=== PATIENT | female | born 2000 | race Caucasian/White ===

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

== ENCOUNTER → 2022-11-16 | Outpatient (CLI) | payer OTHER ==
--- NOTE | 2022-11-16 15:33 | USB ---
Reason for Exam: Clinical finding. Patient History: Currently using Hormonal Contraceptives, starting at age 17. Paternal aunt had breast cancer. Prior Study Comparison: 10/22/2019 Bilateral Diagnostic Ultrasound, [facility]. Findings: The whole breast of the left breast, the area of palpable concern of the left breast, the axilla of the left breast and the retroareolar of the left breast were scanned. There is a lobulated hypoechoic mass at the left 2:00 position corresponding to the palpable site 10 cm from the nipple. This was present previously however appears to have enlarged slightly in the interval and measures 1.6 x 1.5 x 1.0 cm versus 1.4 x 1.2 x 1.4 cm. This is likely reflective of a fibroadenoma. Overall Assessment: Probably benign, BI-RAD 3 Management: Diagnostic Breast Ultrasound of the left breast in 6 months. A clinical breast exam by your physician is recommended on an annual basis and results should be correlated with mammographic findings. This exam should not preclude additional follow-up of suspicious palpable abnormalities. Results were given to the patient verbally at the time of exam. Electronically signed and approved by: Heber Lombardi M.D. Radiologis
== END | disposition home or self-care (01) ==
LOC: RADUSWWP 13:45
PROVIDERS: ATTEND Surgery
DX: N64.4 Mastodynia (principal); Z80.3 Family history of malignant neoplasm of breast

== ENCOUNTER 2022-11-20 06:14 | Day surgery (SDC) | payer OTHER ==
[~2022-11-20 06:14] MED LIST changes: -ACETAMINOPHEN TAB 500 MG TAB PO ONE; +ACETAMINOPHEN TAB 500 MG TAB PO PRN; -DEXAMETHASONE SOD PHOSPHATE 10 MG/ML 1 ML VIAL IV ONE; -HEPARIN SODIUM,PORCINE 5,000 UNIT/ML 1 ML VIAL SQ ONE; +HEPARIN SODIUM,PORCINE/PF 5,000 UNIT/0.5 ML SYRINGE SQ PRN; -HYDROmorphone 0.5 MG/0.5 ML SYRINGE IVP PRN; -LACTATED RINGERS 1,000 ML IV SCH; -LIDOCAINE 1% (10MG/ML) FOR IV START INTRADERMA PRN; -MIDAZOLAM 2 MG/2 ML VIAL IV PRN; -ONDANSETRON 4 MG/2 ML VIAL IVP ONE; +Pre Op ABX Message 1 EACH MISC MISCELLANE ONE; -fentaNYL (PF) 50 MCG/ML 2 ML AMP IV PRN
[2022-11-20] MEDS ORDERED: DEXAMETHASONE SOD PHOSPHATE 4 MG/ML 1 ML VIAL IV ONE (06:42)
[2022-11-20] MEDS ORDERED: ONDANSETRON 4 MG/2 ML VIAL IVP ONE (06:42)
[2022-11-20] MEDS ORDERED: HYDROmorphone 0.5 MG/0.5 ML SYRINGE IVP PRN (06:42)
[2022-11-20] MEDS ORDERED: LACTATED RINGERS 1,000 ML IV SCH (06:42)
[2022-11-20] MEDS ORDERED: LIDOCAINE 1% (10MG/ML) FOR IV START INTRADERMA PRN (06:42)
[2022-11-20] MEDS ORDERED: droPERidol 5 MG/2 ML VIAL IVP ONE (06:42)
[2022-11-20 07:00] VITALS: RESP 16
[2022-11-20] MEDS ORDERED: SCOPOLAMINE 1 MG/72 HR PATCH TRANSDERM ONE (07:15)
[2022-11-20] MEDS ORDERED: MIDAZOLAM 2 MG/2 ML VIAL ONE (08:01)
[2022-11-20] MEDS ORDERED: fentaNYL (PF) 50 MCG/ML 2 ML AMP ONE (08:01)
[2022-11-20] MEDS ORDERED: LIDOCAINE 2% INJ 20 MG/ML (2 ML VIAL) ONE (08:01)
[2022-11-20] MEDS ORDERED: PROPOFOL 10 MG/ML 20 ML VIAL IV ONE (08:01)
[2022-11-20] MEDS ORDERED: SODIUM CHLORIDE 0.9% 100 ML BAG ONE (08:24)
[2022-11-20] MEDS ORDERED: SODIUM CHLORIDE 0.9% 50 ML with ceFAZolin 2,000 MG IV ONE ×2 (08:24)
[2022-11-20] MEDS ORDERED: ceFAZolin 1,000 MG VIAL ONE (08:24)
[2022-11-20] MEDS ORDERED: BUPIVACAINE (PF) 0.25% 30 ML VIAL SQ ONE ×2 (08:29)
--- NOTE | 2022-11-20 08:53 | P.OP ---
Date of Procedure: 11/20/22 Preoperative Diagnosis: Left breast mass Postoperative Diagnosis: Left breast mass Procedure(s) Performed: Excisional biopsy left breast mass Anesthesia: MILLIE Surgeon: Constantino Carlson Estimated Blood Loss (ml): 5 Pathology: other (Left breast mass) Condition: stable Disposition: PACU Description of Procedure: The patient's placed on the operating table in the supine position. She received general anesthesia. Her left breast was prepped and draped usual sterile fashion. The patient had a left breast mass located at approximately 2 o'clock position. Masses palpated. A skin incision was made over the mass. And using blunt and sharp dissection with cautery the mass was excised. The mass appeared to have a glistening white appearance of a fibroadenoma. The Bovie hemostasis. The skin was closed interrupted 3-0 Monocryl suture. Dermabond dressings was applied. Patient top she will well she was sent to recovery room in stable condition.
[2022-11-20 09:02] VITALS: TEMP 97
[2022-11-20 10:07] VITALS: BP 125/83; PULSE 54
== END 2022-11-20 10:15 | disposition home or self-care (01) ==
LOC: OR 06:14
PROVIDERS: ATTEND Surgery
DX: D24.2 Benign neoplasm of left breast (principal); J45.909 Unspecified asthma, uncomplicated; F17.290 Nicotine dependence, other tobacco product, uncomplicated; F10.90 Alcohol use, unspecified, uncomplicated; Z98.51 Tubal ligation status
CPT/HCPCS: 81025; 88305; 19120; J2250; J1100; J2405; J0690; J3010; J2704; J1644; J2001

== ENCOUNTER 2023-03-07 00:36 | Emergency (ER) | payer OTHER ==
[2023-03-07 00:52] VITALS: BP 128/83; PULSE 75; RESP 16; TEMP 98.1
--- NOTE | 2023-03-07 01:02 | ED ---
Skin/Abscess/FB HPI - General Chief complaint: Skin/Abscess/Foreign Body Stated complaint: bump left arm Time Seen by Provider: 03/07/23 00:44 Source: patient Mode of arrival: ambulatory Limitations: no limitations - History of Present Illness Initial comments: 22-year-old female presenting with chief complaint of painful bumps to the left arm. Patient reports donating plasma today. Patient now has pain and swelling over the return site. No numbness or tingling. Patient has full range of motion of the hand, fingers, and arm. No weakness. No fevers, chills, erythema. No injury or trauma. - Related Data Previous Rx's Medication Instructions Recorded Albuterol Inhaler [Ventolin Hfa 1 - 2 puff INHALATION Q6H PRN #1 07/16/22 Inhaler] each Albuterol Nebulized [Ventolin 2.5 mg INHALATION Q4H PRN #75 ml 07/16/22 Nebulized] Acetaminophen Tab [Tylenol] 650 mg PO Q6H #30 tab 11/20/22 Ibuprofen [Motrin] 600 mg PO Q6HR PRN #40 tab 11/20/22 Allergies Allergy/AdvReac Type Severity Reaction Status Date / Time No Known Allergies Allergy Verified 03/07/23 00:40 Review of Systems ROS Statement: Those systems with pertinent positive or pertinent negative responses have been documented in the HPI. ROS Other: All systems not noted in ROS Statement are negative. Past Medical History Past Medical History: Asthma Additional Past Medical History / Comment(s): lump right breast History of Any Multi-Drug Resistant Organisms: None Reported Past Surgical History: Breast Surgery Additional Past Surgical History / Comment(s): rt breast lumpectomy Past Anesthesia/Blood Transfusion Reactions: No Reported Reaction, Postoperative Nausea & Vomiting (PONV) Additional Past Anesthesia/Blood Transfusion Reaction / Comment(s): NEVER RECEIVED ANESTHESIA Past Psychological History: Anxiety, Depression Smoking Status: Vaper Past Alcohol Use History: None Reported Past Drug Use History: None Reported - Past Family History Mother Family Medical History: No Reported History General Exam Limitations: no limitations General appearance: alert, in no apparent distress Head exam: Present: atraumatic, normocephalic, normal inspection Eye exam: Present: normal appearance, EOMI Neck exam: Present: normal inspection, full ROM Respiratory exam: Absent: respiratory distress Left Forearm Wrist exam: Present: full ROM, tenderness, swelling (Hematoma to the proximal forearm). Absent: erythema Neurological exam: Present: alert, oriented X3 Psychiatric exam: Present: normal affect, normal mood Skin exam: Present: warm, dry, intact Course Vital Signs 03/07/23 00:38 Temperature 98.1 F Pulse Rate 75 Respiratory 16 Rate Blood Pressure 128/83 O2 Sat by Pulse 100 Oximetry Medical Decision Making - Medical Decision Making Was pt. sent in by a medical professional or institution (ANNEMARIE Morales, 3D MODELER, urgent care, hospital, or senior care...) When possible be specific @ -No Did you speak to anyone other than the patient for history (EMS, parent, family, police, friend...)? What history was obtained from this source @ -No Did you review nursing and triage notes (agree or disagree)? Why? @ -I reviewed and agree with nursing and triage notes Were old charts reviewed (outside hosp., previous admission, EMS record, old EKG, old radiological studies, urgent care reports/EKG's, senior care records)? Report findings @ -No old charts were reviewed Differential Diagnosis (chest pain, altered mental status, abdominal pain women, abdominal pain men, vaginal bleeding, weakness, fever, dyspnea, syncope, headache, dizziness, GI bleed, back pain, seizure, CVA, palpatations, mental health, musculoskeletal)? @ -Differential includes hematoma, abscess, ALLERGIC reaction, this is not an all-inclusive list EKG interpreted by me (3pts min.). @ -As above X-rays interpreted by me (1pt min.). @ -None done CT interpreted by me (1pt min.). @ -None done U/S interpreted by me (1pt. min.). @ -None done What testing was considered but not performed or refused? (CT, X-rays, U/S, labs)? Why? @ -None What meds were considered but not given or refused? Why? @ -None Did you discuss the management of the patient with other professionals (professionals i.e. ANNEMARIE Morales, 3D MODELER, lab, RT, psych nurse, social media director, skein yarn dyer, teacher, protection officer, trimming caser)? Give summary @ -No Was smoking cessation discussed for >3mins.? @ -No Was critical care preformed (if so, how long)? @ -No Were there social determinants of health that impacted care today? How? (Homelessness, low income, unemployed, alcoholism, drug addiction, transportation, low edu. Level, literacy, decrease access to med. care, halfway, rehab)? @ -No Was there de-escalation of care discussed even if they declined (Discuss DNR or withdrawal of care, Hospice)? DNR status @ -No What co-morbidities impacted this encounter? (DM, HTN, Smoking, COPD, CAD, Cancer, CVA, ARF, Chemo, Hep., AIDS, mental health diagnosis, sleep apnea, morbid obesity)? @ -None Was patient admitted / discharged? Hospital course, mention meds given and route, prescriptions, significant lab abnormalities, going to OR and other pertinent info. @ -22-year-old female presenting with chief complaint of pain and swelling to the left forearm. Patient donated plasma today and now has pain and swelling over the return site. On physical examination there is hematoma noted. No erythema or warmth. There is some tenderness on palpation. She is neurovascularly intact. Patient is educated on supportive management of hematoma. Follow-up with PCP. Report back to ER with any new or worsening symptoms. Discussed return parameters and answered all questions. Patient conveyed verbal understanding and agreed to the plan. I discussed this case in detail with my attending Dr. Wells Undiagnosed new problem with uncertain prognosis? @ -No Drug Therapy requiring intensive monitoring for toxicity (Heparin, Nitro, Insulin, Cardizem)? @ -No Were any procedures done? @ -No Diagnosis/symptom? @ -Hematoma Acute, or Chronic, or Acute on Chronic? @ -Acute Uncomplicated (without systemic symptoms) or Complicated (systemic symptoms)? @ -Uncomplicated Side effects of treatment? @ -No Exacerbation, Progression, or Severe Exacerbation? @ -No Poses a threat to life or bodily function? How? (Chest pain, [place], [place], pneumonia, PE, COPD, DKA, ARF, appy, cholecystitis, CVA, Diverticulitis, Homicidal, Suicidal, threat to staff... and all critical care pts) @ -No Disposition Clinical Impression: Hematoma Disposition: HOME SELF-CARE Condition: Good Instructions (If sedation given, give patient instructions): Hematoma (ED) Additional Instructions: Follow-up with PCP. Report back to ER with any new or worsening symptoms. Use compresses and take Motrin and Tylenol as needed. Is patient prescribed a controlled substance at d/c from ED?: No Referrals: Chun Bean MD [Primary Care Provider] - 1-2 days Time of Disposition: 01:02
== END 2023-03-07 01:15 | disposition home or self-care (01) ==
LOC: EC 00:36
DX: S50.12XA Contusion of left forearm, initial encounter (principal); J45.909 Unspecified asthma, uncomplicated; F17.290 Nicotine dependence, other tobacco product, uncomplicated; X58.XXXA Exposure to other specified factors, initial encounter
CPT/HCPCS: 99282

== ENCOUNTER 2023-03-09 11:08 | Emergency (ER) | payer OTHER ==
[2023-03-09 11:24] VITALS: TEMP 98.2
--- NOTE | 2023-03-09 11:44 | ED ---
Extremity Problem HPI - General Chief complaint: Extremity Problem,Nontraumatic Stated complaint: Left arm pain Time Seen by Provider: 03/09/23 11:18 Source: patient, RN notes reviewed Mode of arrival: ambulatory Limitations: no limitations - History of Present Illness Initial comments: This is a 22-year-old female who presents to the emergency department for left arm pain, swelling, and bruising. Patient donated plasma 3 days ago, and has since been having extensive bruising, pain, and swelling to the arm. She feels like it might be getting worse. She was evaluated here 2 days ago, and advised supportive care. Her concern is that it seems to be getting worse. She is applying ice, elevating the arm, and using [id number] pain relievers. States that she is getting tingling going down the arm, and she would like to have this reevaluated. They only had to poke her once and she had no difficulty in the donation process itself. This is also not the first time she has donated plasma. Denies any fevers, chills, sore throat, cough, dyspnea, chest pain, palpitations, abdominal pain, nausea, vomiting, diarrhea, back pain, or headaches. MD Complaint: extremity pain, extremity swelling - Related Data Previous Rx's Medication Instructions Recorded Albuterol Inhaler [Ventolin Hfa 1 - 2 puff INHALATION Q6H PRN #1 07/16/22 Inhaler] each Albuterol Nebulized [Ventolin 2.5 mg INHALATION Q4H PRN #75 ml 07/16/22 Nebulized] Acetaminophen Tab [Tylenol] 650 mg PO Q6H #30 tab 11/20/22 Ibuprofen [Motrin] 600 mg PO Q6HR PRN #40 tab 11/20/22 Allergies Allergy/AdvReac Type Severity Reaction Status Date / Time No Known Allergies Allergy Verified 03/09/23 11:16 Review of Systems ROS Statement: Those systems with pertinent positive or pertinent negative responses have been documented in the HPI. ROS Other: All systems not noted in ROS Statement are negative. Past Medical History Past Medical History: Asthma Additional Past Medical History / Comment(s): lump right breast History of Any Multi-Drug Resistant Organisms: None Reported Past Surgical History: Breast Surgery Additional Past Surgical History / Comment(s): rt breast lumpectomy Past Anesthesia/Blood Transfusion Reactions: No Reported Reaction, Postoperative Nausea & Vomiting (PONV) Additional Past Anesthesia/Blood Transfusion Reaction / Comment(s): NEVER RECEIVED ANESTHESIA Past Psychological History: Anxiety, Depression Smoking Status: Vaper Past Alcohol Use History: None Reported Past Drug Use History: None Reported - Past Family History Mother Family Medical History: No Reported History General Exam Limitations: no limitations General appearance: alert, in no apparent distress Head exam: Present: atraumatic, normocephalic, normal inspection Respiratory exam: Present: normal lung sounds bilaterally. Absent: respiratory distress, wheezes, rales, rhonchi, stridor Cardiovascular Exam: Present: regular rate, normal rhythm, normal heart sounds. Absent: systolic murmur, diastolic murmur, rubs, gallop, clicks Extremities exam: Present: other (Ecchymosis, tenderness, and swelling to the left antecubital fossa. There is some ecchymosis spreading distally. There is no erythema or warmth. 2+ radial pulses. Capillary refill less than 1 second.) Neurological exam: Present: alert, oriented X3, CN II-XII intact Psychiatric exam: Present: normal affect, normal mood Skin exam: Present: warm, dry, intact Course Vital Signs 03/09/23 03/09/23 11:15 12:50 Temperature 98.2 F 98.2 F Pulse Rate 80 65 Respiratory 20 16 Rate Blood Pressure 140/86 139/95 O2 Sat by Pulse 99 100 Oximetry Medical Decision Making - Medical Decision Making This is a 22-year-old female who presents to the emergency department for left arm pain and swelling. Was pt. sent in by a medical professional or institution? @ -No Did you speak to anyone other than the patient for history? @ -No Did you review nursing and triage notes? @ -Yes, and I agree, it is accurate with regards to the patient's symptoms. Were old charts reviewed? @ -No Differential Diagnosis? @ -Differential Arm Pain/Bruising: Hematoma, DVT, arterial insufficiency, CVA, injury, this is not meant to be in OF this. EKG interpreted by me (3pts min.)? @ -Not obtained X-rays interpreted by me (1pt min.)? @ -Not obtained CT interpreted by me (1pt min.)? @ -Not obtained U/S interpreted by me (1pt. min.)? @ -Duplex US of the left upper extremity obtained. My interpretation identifies no evidence of a DVT. What testing was considered but not performed? (CT, X-rays, U/S, labs)? Why? @ -None What meds were considered but not given? Why? @ -None Did you discuss the management of the patient with other professionals? @ -No Did you reconcile home meds? @ -No Was smoking cessation discussed for >3mins.? @ -No Was critical care preformed (if so, how long)? @ -No Were there social determinants of health that impacted care today? How? (Homelessness, low income, unemployed, alcoholism, drug addiction, transportation, low edu. Level, literacy, decrease access to med. care, assisted, rehab)? @ -No Was there de-escalation of care discussed even if they declined? (Discuss DNR or withdrawal of care, Hospice)? @ -No What co-morbidities impacted this encounter? (DM, HTN, Smoking, COPD, CAD, Cancer, CVA, Hep., AIDS, mental health diagnosis, sleep apnea, morbid obesity)? @ -None Was patient admitted / discharged? @ -Discharged. Duplex ultrasound of the left upper extremity obtained. This revealed no evidence of a DVT. Advised the patient that bruising can sometimes look worse before it gets better. Also advised that the bleeding will tend to follow gravity, and she may start to develop some bruising or skin changes going down the arm as well. She is advised to apply warm compresses at this point, keep arm elevated, and alternate with ibuprofen and Tylenol as needed for pain relief. Undiagnosed new problem with uncertain prognosis? @ -None Drug Therapy requiring intensive monitoring for toxicity (Heparin, Nitro, Insulin, Cardizem)? @ -None Were any procedures done? @ -None Diagnosis/symptom? @ -Hematoma to left arm Acute, or Chronic, or Acute on Chronic? @ -Acute Uncomplicated (without systemic symptoms) or Complicated (systemic symptoms)? @ -Uncomplicated Side effects of treatment? @ -None Exacerbation, Progression, or Severe Exacerbation] @ -Not applicable Poses a threat to life or bodily function? @ -No Return precautions reviewed in depth, the patient is instructed to return to the emergency department with any new, worsening, or concerning symptoms. Patient verbalized understanding. This case was discussed in detail with the attending ED physician, Dr. Aguilar. Presentation, findings, and treatment plan discussed in detail as well. - Radiology Data Radiology results: report reviewed, image reviewed Disposition Clinical Impression: Hematoma of arm Disposition: HOME SELF-CARE Instructions (If sedation given, give patient instructions): Hematoma (ED) Additional Instructions: Return to the emergency department with any new, worsening, or concerning symptoms. Begin applying warm compresses. Alternate with ibuprofen and Tylenol as needed for pain relief and keep the arm elevated. Follow up with your primary care provider in 1-2 days. Is patient prescribed a controlled substance at d/c from ED?: No Referrals: Chun Bean MD [Primary Care Provider] - 1-2 days
--- NOTE | 2023-03-09 12:24 | US ---
EXAMINATION TYPE: US venous doppler duplex UE LT DATE OF EXAM: 03/09/2023 COMPARISON: NONE CLINICAL INDICATION: Female, 22 years old with history of Left arm pain and swelling; Left arm pain a nd bruising SIDE PERFORMED: Left Left Arm: Appears negative for DVT IMPRESSION: Grayscale, color doppler, spectral doppler imaging performed of the deep veins of the upper extremiti es. There is normal flow, compressibility and vascular waveforms.
[2023-03-09 12:51] VITALS: BP 139/95; PULSE 65; RESP 16
== END 2023-03-09 12:52 | disposition home or self-care (01) ==
LOC: EC 11:08
DX: S40.022A Contusion of left upper arm, initial encounter (principal); J45.909 Unspecified asthma, uncomplicated; F17.290 Nicotine dependence, other tobacco product, uncomplicated; X58.XXXA Exposure to other specified factors, initial encounter
CPT/HCPCS: 99283

== ENCOUNTER 2024-09-13 21:34 | Emergency (ER) | payer OTHER ==
--- NOTE | 2024-09-13 22:17 | ED ---
General Adult HPI - General Chief complaint: ENT Stated complaint: throat pain Time Seen by Provider: 09/13/24 21:42 Source: patient, RN notes reviewed Mode of arrival: ambulatory Limitations: no limitations - History of Present Illness Initial comments: 24-year-old female presents emergency department for chief complaint of sore throat. He states that she has been experiencing a sore throat in addition to chills, headaches, mild abdominal pain and rhinorrhea. Patient evaluated earlier week by urgent care where she was tested for COVID, flu, RSV, strep resulted negative. she states that her sore throat has been worsening over the last few days rather than improving and has noticed that there are 'white spots' forming on the back of her throat on her tonsills. - Related Data Previous Rx's Medication Instructions Recorded Albuterol Inhaler [Ventolin Hfa 1 - 2 puff INHALATION Q6H PRN #1 07/16/22 Inhaler] each Albuterol Nebulized [Ventolin 2.5 mg INHALATION Q4H PRN #75 ml 07/16/22 Nebulized] Acetaminophen Tab [Tylenol] 650 mg PO Q6H #30 tab 11/20/22 Ibuprofen [Motrin] 600 mg PO Q6HR PRN #40 tab 11/20/22 Amoxicillin 875 mg PO Q12HR #20 tablet 09/13/24 Allergies Allergy/AdvReac Type Severity Reaction Status Date / Time No Known Allergies Allergy Verified 09/13/24 21:42 Review of Systems ROS Statement: Those systems with pertinent positive or pertinent negative responses have been documented in the HPI. ROS Other: All systems not noted in ROS Statement are negative. Past Medical History Past Medical History: Asthma Additional Past Medical History / Comment(s): lump right breast History of Any Multi-Drug Resistant Organisms: None Reported Past Surgical History: Breast Surgery Additional Past Surgical History / Comment(s): rt breast lumpectomy Past Anesthesia/Blood Transfusion Reactions: No Reported Reaction, Postoperative Nausea & Vomiting (PONV) Additional Past Anesthesia/Blood Transfusion Reaction / Comment(s): NEVER RECEIVED ANESTHESIA Past Psychological History: Anxiety, Depression Smoking Status: Vaper Past Alcohol Use History: None Reported Past Drug Use History: None Reported - Past Family History Mother Family Medical History: No Reported History General Exam Limitations: no limitations General appearance: alert, in no apparent distress Expanded Throat exam: tonsillar erythema, tonsillar exudate. negative: R peritonsillar mass, L peritonsillar mass Neck exam: Present: lymphadenopathy (tonsillar). Absent: meningismus Respiratory exam: Present: normal lung sounds bilaterally. Absent: respiratory distress, wheezes, rales, rhonchi, stridor Cardiovascular Exam: Present: regular rate, normal rhythm, normal heart sounds. Absent: systolic murmur, diastolic murmur, rubs, gallop, clicks GI/Abdominal exam: Present: soft, normal bowel sounds. Absent: distended, tenderness, guarding, rebound, rigid Extremities exam: Present: normal inspection, full ROM, normal capillary refill. Absent: tenderness, pedal edema, joint swelling, calf tenderness Course Vital Signs 09/13/24 09/13/24 21:39 23:46 Temperature 97.9 F 98.1 F Pulse Rate 73 66 Respiratory 16 18 Rate Blood Pressure 143/94 153/95 O2 Sat by Pulse 99 100 Oximetry Medical Decision Making - Medical Decision Making Was pt. sent in by a medical professional or institution (, PA, TNT LINE SUPERVISOR, urgent care, hospital, or [facility]...) When possible be specific @ -No Did you speak to anyone other than the patient for history (EMS, parent, family, police, friend...)? What history was obtained from this source @ -No Did you review nursing and triage notes (agree or disagree)? Why? @ -I reviewed and agree with nursing and triage notes Were old charts reviewed (outside hosp., previous admission, EMS record, old EKG, old radiological studies, urgent care reports/EKG's, [facility] records)? Report findings @ -No old charts were reviewed Differential Diagnosis (chest pain, altered mental status, abdominal pain women, abdominal pain men, vaginal bleeding, weakness, fever, dyspnea, syncope, headache, dizziness, GI bleed, back pain, seizure, CVA, palpatations, mental health, musculoskeletal)? @ -COVID 19, RSV, influenza, pneumonia, acute bronchitis, URI, this list is not all inclusive EKG interpreted by me (3pts min.). @ -none X-rays interpreted by me (1pt min.). @ -None done CT interpreted by me (1pt min.). @ -None done U/S interpreted by me (1pt. min.). @ -None done What testing was considered but not performed or refused? (CT, X-rays, U/S, labs)? Why? @ -None What meds were considered but not given or refused? Why? @ -None Did you discuss the management of the patient with other professionals (professionals i.e. , PA, TNT LINE SUPERVISOR, lab, RT, psych nurse, social worker clinical, machine fixer, teacher, development officer, case resolution specialist)? Give summary @ -No Was smoking cessation discussed for >3mins.? @ -No Was critical care preformed (if so, how long)? @ -No Were there social determinants of health that impacted care today? How? (Homelessness, low income, unemployed, alcoholism, drug addiction, transportation, low edu. Level, literacy, decrease access to med. care, [facility], rehab)? @ -No Was there de-escalation of care discussed even if they declined (Discuss DNR or withdrawal of care, Hospice)? DNR status @ -No What co-morbidities impacted this encounter? (DM, HTN, Smoking, COPD, CAD, Cancer, CVA, ARF, Chemo, Hep., AIDS, mental health diagnosis, sleep apnea, morbid obesity)? @ -None Was patient admitted / discharged? Hospital course, mention meds given and route, prescriptions, significant lab abnormalities, going to OR and other pertinent info. @ -Discharge. 24-year-old female presenting with chief complaint of a sore throat. Patient is noted to have bilateral tonsillar erythema and mild exudate in addition to tonsillar lymphadenopathy. Patient has elevated Centor criteria and will be treated for strep pharyngitis with amoxicillin. Additionally, she provided with dose of Decadron for tonsillar swelling. Supportive care discussed at bedside. Case discussed with Dr. Crisostomo Undiagnosed new problem with uncertain prognosis? @ -No Drug Therapy requiring intensive monitoring for toxicity (Heparin, Nitro, Insulin, Cardizem)? @ -No Were any procedures done? @ -No Diagnosis/symptom? @ -Strep pharyngitis Acute, or Chronic, or Acute on Chronic? @ -acute Uncomplicated (without systemic symptoms) or Complicated (systemic symptoms)? @ -uncomplicated Side effects of treatment? @ -No Exacerbation, Progression, or Severe Exacerbation? @ -No Poses a threat to life or bodily function? How? (Chest pain, [place], NH, pneumonia, PE, COPD, DKA, ARF, appy, cholecystitis, CVA, Diverticulitis, Homicidal, Suicidal, threat to staff... and all critical care pts) @ -No - Lab Data Lab Results 09/13/24 09/13/24 Range/Units 22:35 22:35 Influenza Type A (PCR) Not Detected (Not Detectd) Influenza Type B (PCR) Not Detected (Not Detectd) RSV (PCR) Not Detected (Not Detectd) SARS-CoV-2 (PCR) Not Detected (Not Detectd) Group A Strep (PCR) NOT DETECTED (Not Detectd) Disposition Clinical Impression: Strep pharyngitis Disposition: HOME SELF-CARE Condition: Good Instructions (If sedation given, give patient instructions): Strep Throat (DC) Additional Instructions: Please return to the Emergency Department if symptoms worsen or any other concerns. Prescriptions: Amoxicillin 875 mg PO Q12HR #20 tablet Is patient prescribed a controlled substance at d/c from ED?: No Referrals: Nonstaff,Physician [Primary Care Provider] - 1-2 days Time of Disposition: 23:23
[2024-09-13] MEDS: dexAMETHasone 4 MG TAB PO STA (22:42)
[2024-09-13 23:21] LABS: Influenza A Not Detected (Not Detectd); Influenza B Not Detected (Not Detectd); RSV Not Detected (Not Detectd)
[2024-09-13] MEDS: AMOXICILLIN 875 MG TAB PO STA (23:45)
[2024-09-13 23:49] VITALS: BP 153/95; PULSE 66; RESP 18; TEMP 98.1
== END 2024-09-13 23:51 | disposition home or self-care (01) ==
LOC: EC 21:34
DX: J02.0 Streptococcal pharyngitis (principal); F17.290 Nicotine dependence, other tobacco product, uncomplicated
CPT/HCPCS: 87651; 87636; 99283; J8540

== ENCOUNTER 2024-09-30 19:14 | Emergency (ER) | payer OTHER ==
--- NOTE | 2024-09-30 20:30 | ED ---
General Adult HPI - General Chief complaint: Nausea/Vomiting/Diarrhea Stated complaint: NVD Time Seen by Provider: 09/30/24 19:32 Source: patient, RN notes reviewed Mode of arrival: ambulatory Limitations: no limitations - History of Present Illness Initial comments: 24-year-old female presenting to the emergency department for complaints of nausea, vomiting, diarrhea, dehydration over the past 2 to 3 days. Patient states that she was diagnosed with a urinary tract infection on Sunday and is on antibiotics currently however does not remember which antibiotic she is on. She states that her urinary symptoms have resolved. Patient endorses mild sup rapubic tenderness. Denies hematuria, dysuria, increased urinary frequency or urgency, bloody or dark or sticky stools. States that she has been having difficult time keeping up with her liquids today. - Related Data Previous Rx's Medication Instructions Recorded Albuterol Inhaler [Ventolin Hfa 1 - 2 puff INHALATION Q6H PRN #1 07/16/22 Inhaler] each Albuterol Nebulized [Ventolin 2.5 mg INHALATION Q4H PRN #75 ml 07/16/22 Nebulized] Acetaminophen Tab [Tylenol] 650 mg PO Q6H #30 tab 11/20/22 Ibuprofen [Motrin] 600 mg PO Q6HR PRN #40 tab 11/20/22 Amoxicillin 875 mg PO Q12HR #20 tablet 09/13/24 Ondansetron Odt [Zofran Odt] 4 mg PO Q8HR PRN #10 tab 09/30/24 Allergies Allergy/AdvReac Type Severity Reaction Status Date / Time cat dander Allergy Unknown Verified 09/30/24 19:43 Review of Systems ROS Statement: Those systems with pertinent positive or pertinent negative responses have been documented in the HPI. ROS Other: All systems not noted in ROS Statement are negative. Past Medical History Past Medical History: Asthma Additional Past Medical History / Comment(s): lump right breast History of Any Multi-Drug Resistant Organisms: None Reported Past Surgical History: Breast Surgery Additional Past Surgical History / Comment(s): rt breast lumpectomy Past Anesthesia/Blood Transfusion Reactions: No Reported Reaction, Postoperative Nausea & Vomiting (PONV) Additional Past Anesthesia/Blood Transfusion Reaction / Comment(s): NEVER RECEIVED ANESTHESIA Past Psychological History: Anxiety, Depression Smoking Status: Vaper Past Alcohol Use History: Rare Past Drug Use History: None Reported - Past Family History Mother Family Medical History: No Reported History General Exam Limitations: no limitations General appearance: alert, in no apparent distress Respiratory exam: Present: normal lung sounds bilaterally. Absent: respiratory distress, wheezes, rales, rhonchi, stridor Cardiovascular Exam: Present: regular rate, normal rhythm, normal heart sounds. Absent: systolic murmur, diastolic murmur, rubs, gallop, clicks GI/Abdominal exam: Present: soft, tenderness (RLQ), normal bowel sounds. Absent: distended, guarding, rebound, rigid Extremities exam: Present: normal inspection, full ROM, normal capillary refill. Absent: tenderness, pedal edema, joint swelling, calf tenderness Back exam: Present: normal inspection. Absent: CVA tenderness (R), CVA tenderness (L) Skin exam: Present: warm, dry, intact, normal color. Absent: rash Course Vital Signs 09/30/24 09/30/24 09/30/24 19:41 22:39 23:23 Temperature 100.7 F H 98.2 F 98.4 F Pulse Rate 102 H 70 78 Respiratory 20 17 16 Rate Blood Pressure 108/76 96/58 105/65 O2 Sat by Pulse 98 98 99 Oximetry Medical Decision Making - Medical Decision Making Was pt. sent in by a medical professional or institution (ANNEMARIE Morales, PERSONNEL CLERK, urgent care, hospital, or retirement...) When possible be specific @ -No Did you speak to anyone other than the patient for history (EMS, parent, family, police, friend...)? What history was obtained from this source @ -No Did you review nursing and triage notes (agree or disagree)? Why? @ -I reviewed and agree with nursing and triage notes Were old charts reviewed (outside hosp., previous admission, EMS record, old EKG, old radiological studies, urgent care reports/EKG's, retirement records)? Report findings @ -No old charts were reviewed Differential Diagnosis (chest pain, altered mental status, abdominal pain women, abdominal pain men, vaginal bleeding, weakness, fever, dyspnea, syncope, headache, dizziness, GI bleed, back pain, seizure, CVA, palpatations, mental health, musculoskeletal)? @ -Differential Abdominal Pain Women: Appendicitis, Cholecystitis, diverticulosis, ischemic bowel, pancreatitis, hepatitis, UTI, gastroenteritis, AAA, incarcerated hernia, bowel obstruction, constipation, inflammatory bowel, hepatitis, peptic ulcer disease, splenic infarction, perforated viscus, vulvitis, ovarian torsion, PID, kidney stone, pl acenta abruption, this is not meant to be an all-inclusive list EKG interpreted by me (3pts min.). @ -None X-rays interpreted by me (1pt min.). @ -None done CT interpreted by me (1pt min.). @ -CT imaging of the abdomen pelvis with IV contrast reveals wall thiickening, involving small bowel within the left mid abdomen with no evidence of bowel obstruction suggestive of enteritis Suggested right urinary bladder intraluminal polyp versus blood clot measuring 1.2 cm from the bladder dome recommend follow up short-term CT U/S interpreted by me (1pt. min.). @ -None done What testing was considered but not performed or refused? (CT, X-rays, U/S, labs)? Why? @ -None What meds were considered but not given or refused? Why? @ -None Did you discuss the management of the patient with other professionals (professionals i.e. , PA, PERSONNEL CLERK, lab, RT, psych nurse, mental health social worker, batch records clerk, teacher, unclaimed property officer, top case assembler)? Give summary @ -No Was smoking cessation discussed for >3mins.? @ -No Was critical care preformed (if so, how long)? @ -No Were there social determinants of health that impacted care today? How? (Homelessness, low income, unemployed, alcoholism, drug addiction, transportation, low edu. Level, literacy, decrease access to med. care, assisted, rehab)? @ -No Was there de-escalation of care discussed even if they declined (Discuss DNR or withdrawal of care, Hospice)? DNR status @ -No What co-morbidities impacted this encounter? (DM, HTN, Smoking, COPD, CAD, Cancer, CVA, ARF, Chemo, Hep., AIDS, mental health diagnosis, sleep apnea, morbid obesity)? @ -None Was patient admitted / discharged? Hospital course, mention meds given and route, prescriptions, significant lab abnormalities, going to OR and other pertinent info. @ -Discharge. 24-year-old female presents emergency department with nausea, vomiting, diarrhea. Patient is febrile on arrival with a temperature of 100.7 and tachycardic with heart rate of 102. Physical exam reveals lower abdominal tenderness most notable of the suprapubic and right lower quadrant. Patient is provided with fluids, Zofran, IV Tylenol. Laboratory testing including CBC and CMP is unremarkable. Urinalysis consistent with contamination including epithelial cells, white cells and moderate leukocyte esterase. As patient is not having urinary symptoms antibiotics will not be initiated this time and ur ine sent for culture. CT imaging of the abdomen pelvis reveals findings suggestive of enteritis with a incidental finding of an intraluminal polyp versus blood clot measuring 1.2 cm. Patient is informed of today's findings instructed to continue clear liquid diet over 24 hours after slowly reducing foods. She is provided with prescription for Zofran. Recommend follow-up with primary care provider in the next 1 to 3 days in addition to follow-up in regard to incidental CT imaging findings of polyp versus bladder blood clot. Case discussed with Dr. Bartholomew Undiagnosed new problem with uncertain prognosis? @ -No Drug Therapy requiring intensive monitoring for toxicity (Heparin, Nitro, Insulin, Cardizem)? @ -No Were any procedures done? @ -No Diagnosis/symptom? @ -Enteritis, acute nausea vomiting Acute, or Chronic, or Acute on Chronic? @ -Acute Uncomplicated (without systemic symptoms) or Complicated (systemic symptoms)? @ -Uncomplicated Side effects of treatment? @ -No Exacerbation, Progression, or Severe Exacerbation? @ -No Poses a threat to life or bodily function? How? (Chest pain, [place], [place], pneumonia, PE, COPD, DKA, ARF, appy, cholecystitis, CVA, Diverticulitis, Homicidal, Suicidal, threat to staff... and all critical care pts) @ -No - Lab Data Result diagrams: 09/30/24 20:49 09/30/24 20:49 Lab Results 09/30/24 09/30/24 09/30/24 Range/Units 20:31 20:49 20:49 WBC 10.66 H (4.50-10.00) 10*3/uL RBC 4.50 (4.10-5.20) 10*6/uL Hgb 14.0 (12.0-15.0) g/dL Hct 41.3 (37.2-46.3) % MCV 91.8 (80.0-97.0) fL MCH 31.1 (27.0-32.0) pg MCHC 33.9 (32.0-37.0) g/dL Plt Count 240 (140-440) 10*3/uL MPV 10.0 (9.5-12.2) fL Immature Gran % (Auto) 0.5 % Neutrophils % 93.3 % Lymphocytes % 4.0 % Monocytes % 2.0 % Eosinophils % 0.0 % Basophils % 0.2 % Immature Gran # 0.05 H (0.00-0.04) 10*3/uL Neutrophils # 9.95 H (1.80-7.70) 10*3/uL Lymphocytes # 0.43 L (0.90-5.00) 10*3/uL Monocytes # 0.21 (0.20-1.00) 10*3/uL Eosinophils # 0.00 L (0.04-0.35) 10*3/uL Basophils # 0.02 (0.00-0.10) 10*3/uL Sodium 135 L (137-145) mmol/L Potassium 3.9 (3.5-5.1) mmol/L Chloride 100 (98-107) mmol/L Carbon Dioxide 25 (22-30) mmol/L Anion Gap 10 mmol/L BUN 16 (7-17) mg/dL Creatinine 0.73 (0.52-1.04) mg/dL Est GFR (CKD-EPI)AfAm >90 (>60 ml/min/1.73 sqM) Est GFR (CKD-EPI)NonAf >90 (>60 ml/min/1.73 sqM) Glucose 100 H (74-99) mg/dL Plasma Lactic Acid Devendra (0.7-2.0) mmol/L Calcium 9.0 (8.4-10.2) mg/dL Total Bilirubin 1.8 H (0.2-1.3) mg/dL AST 24 (14-36) U/L ALT 16 (4-34) U/L Alkaline Phosphatase 52 (38-126) U/L Total Protein 6.8 (6.3-8.2) g/dL Albumin 4.3 (3.5-5.0) g/dL HCG, Quant <2.4 mIU/mL Urine Color Yellow Urine Appearance Cloudy H (Clear) Urine pH 6.0 (5.0-8.0) Ur Specific [place] 1.029 (1.001-1.035) Urine Protein Trace H (Negative) Urine Glucose (UA) Negative (Negative) Urine Ketones 1+ H (Negative) Urine Blood Negative (Negative) Urine Nitrite Negative (Negative) Urine Bilirubin Negative (Negative) Urine Urobilinogen <2.0 (<2.0) mg/dL Ur Leukocyte Esterase Moderate H (Negative) Urine RBC 2 (0-5) /hpf Urine WBC 19 H (0-5) /hpf Ur Squamous Epith Cells 54 H (0-4) /hpf Urine Bacteria Rare H (None) /hpf Urine Mucus Rare H (None) /hpf 09/30/24 Range/Units 20:49 WBC (4.50-10.00) 10*3/uL RBC (4.10-5.20) 10*6/uL Hgb (12.0-15.0) g/dL Hct (37.2-46.3) % MCV (80.0-97.0) fL MCH (27.0-32.0) pg MCHC (32.0-37.0) g/dL Plt Count (140-440) 10*3/uL MPV (9.5-12.2) fL Immature Gran % (Auto) % Neutrophils % % Lymphocytes % % Monocytes % % Eosinophils % % Basophils % % Immature Gran # (0.00-0.04) 10*3/uL Neutrophils # (1.80-7.70) 10*3/uL Lymphocytes # (0.90-5.00) 10*3/uL Monocytes # (0.20-1.00) 10*3/uL Eosinophils # (0.04-0.35) 10*3/uL Basophils # (0.00-0.10) 10*3/uL Sodium (137-145) mmol/L Potassium (3.5-5.1) mmol/L Chloride (98-107) mmol/L Carbon Dioxide (22-30) mmol/L Anion Gap mmol/L BUN (7-17) mg/dL Creatinine (0.52-1.04) mg/dL Est GFR (CKD-EPI)AfAm (>60 ml/min/1.73 sqM) Est GFR (CKD-EPI)NonAf (>60 ml/min/1.73 sqM) Glucose (74-99) mg/dL Plasma Lactic Acid Devendra 1.3 (0.7-2.0) mmol/L Calcium (8.4-10.2) mg/dL Total Bilirubin (0.2-1.3) mg/dL AST (14-36) U/L ALT (4-34) U/L Alkaline Phosphatase (38-126) U/L Total Protein (6.3-8.2) g/dL Albumin (3.5-5.0) g/dL HCG, Quant mIU/mL Urine Color Urine Appearance (Clear) Urine pH (5.0-8.0) Ur Specific [place] (1.001-1.035) Urine Protein (Negative) Urine Glucose (UA) (Negative) Urine Ketones (Negative) Urine Blood (Negative) Urine Nitrite (Negative) Urine Bilirubin (Negative) Urine Urobilinogen (<2.0) mg/dL Ur Leukocyte Esterase (Negative) Urine RBC (0-5) /hpf Urine WBC (0-5) /hpf Ur Squamous Epith Cells (0-4) /hpf Urine Bacteria (None) /hpf Urine Mucus (None) /hpf Disposition Clinical Impression: Gastroenteritis Disposition: HOME SELF-CARE Condition: Good Instructions (If sedation given, give patient instructions): Acute Nausea and Vomiting (ED), Acute Diarrhea (ED) Additional Instructions: Please return to the Emergency Department if symptoms worsen or any other concerns. Prescriptions: Ondansetron Odt [Zofran Odt] 4 mg PO Q8HR PRN #10 tab PRN Reason: Nausea Is patient prescribed a controlled substance at d/c from ED?: No Referrals: Chun Bean MD [Primary Care Provider] - 1-2 days Time of Disposition: 23:15
[2024-09-30 20:44] LABS: Appearance,Urine Cloudy (Clear); Bacteria,Urine Rare /hpf; Bilirubin,Urine Negative (Negative); Blood,Urine Negative (Negative); Color,Urine Yellow; Glucose,Urine (UA) Negative (Negative); Ketones,Urine 1+ (Negative); Leukocyte Esterase,Urine Moderate (Negative); Mucus,Urine Rare /hpf; Nitrite,Urine Negative (Negative); Protein,Urine Trace (Negative); RBC,Urine 2 /hpf (0-5); Specific Gravity,Urine 1.029 (1.001-1.035); Squamous Epithelial Cell,Urine 54 /hpf (0-4); Urobilinogen,Urine <2.0 mg/dL (<2.0); WBC,Urine 19 /hpf (0-5)
[2024-09-30] MEDS: SODIUM CHLORIDE 0.9% 1,000 ML IV SCH (20:44)
[2024-09-30] MEDS: ONDANSETRON 4 MG/2 ML VIAL IVP STA (20:45)
[2024-09-30 21:05] LABS: Basophils # (A) 0.02 10*3/uL (0.00-0.10); Basophils % (A) 0.2 %; HCT 41.3 % (37.2-46.3); Lymphocytes # (A) 0.43 10*3/uL (0.90-5.00); MCH 31.1 pg (27.0-32.0); MCHC 33.9 g/dL (32.0-37.0); MCV 91.8 fL (80.0-97.0); Monocytes # (A) 0.21 10*3/uL (0.20-1.00); Neutrophils # (A) 9.95 10*3/uL (1.80-7.70); Neutrophils % (A) 93.3 %; Platelet Count 240 10*3/uL (140-440); RDW 12.8 % (11.5-14.5); WBC 10.66 10*3/uL (4.50-10.00)
[2024-09-30] MEDS: ACETAMINOPHEN IV (For NPO) 1,000 MG in EMPTY BAG 1 BAG IVPB STA (21:18)
[2024-09-30 21:20] LABS: ALT 16 U/L (4-34); AST 24 U/L (14-36); African American GFR (CKD) >90 (>60 ml/min/1.73 sqM); Albumin 4.3 g/dL (3.5-5.0); Alkaline Phosphatase 52 U/L (38-126); Anion Gap 10 mmol/L; Blood Urea Nitrogen 16 mg/dL (7-17); Carbon Dioxide 25 mmol/L (22-30); Chloride 100 mmol/L (98-107); Glucose 100 mg/dL (74-99); Non-African American GFR(CKD) >90 (>60 ml/min/1.73 sqM); Potassium 3.9 mmol/L (3.5-5.1); Sodium 135 mmol/L (137-145); Total Bilirubin 1.8 mg/dL (0.2-1.3); Total Protein 6.8 g/dL (6.3-8.2)
[2024-09-30 21:36] LABS: HCG,Quantitative Serum <2.4 mIU/mL
--- NOTE | 2024-09-30 22:43 | CT ---
EXAMINATION TYPE: CT abdomen pelvis w con CT DLP: 589 mGycm, Automated exposure control for dose reduction was used. DATE OF EXAM: 09/30/2024 10:21 PM COMPARISON: Abdominal radiograph 10/28/2019 CLINICAL INDICATION:Female, 24 years old with history of lower and R lower ab pain, nausea/vomiting, fever; Headache, nausea, diarrhea and fever x 3 days. pt had recent UTI and strep but states both hav e been treated and resolved. no blood in stool or emesis. TECHNIQUE: Standard CT of the abdomen and pelvis following the administration of 100 cc of Isovue 3 00 IV contrast material. Coronal and sagittal reformats were performed. FINDINGS: LOWER CHEST: Visualized lung bases are clear. Pectus excavatum with an AP dimension between the ramires um and spine of 7.0 cm. ABDOMEN LIVER: No focal lesion. Enlarged measuring 19.9 cm in CC dimension. GALLBLADDER AND BILE DUCTS: Unremarkable. PANCREAS: Unremarkable. SPLEEN: Unremarkable. ADRENAL GLANDS: Unremarkable. KIDNEYS AND URETERS: No evidence of hydronephrosis or renal calculus. The kidneys enhance symmetrical ly. Contrast is demonstrated within both collecting systems and proximal ureters on the delayed phase . PELVIS BLADDER: Underdistended urinary bladder with a 1.2 cm intraluminal opacity along the right dome (seri es 201, image 76). REPRODUCTIVE: Unremarkable. ABDOMEN & PELVIS STOMACH AND BOWEL: Stomach and duodenum are unremarkable. There is circumferential wall thickening in volving the small bowel within the left midabdomen. Fluid and air filled small bowel identified. The appendix is not definitively visualized. No evidence of bowel obstruction. PERITONEUM: No evidence of pneumoperitoneum or free fluid. VASCULATURE: No evidence of aortic aneurysm. MUSCULOSKELETAL: No acute osseous abnormalities LYMPH NODES: No evidence for lymphadenopathy. SOFT TISSUE/ABDOMINAL WALL: Tiny fat-containing abdominal hernia. IMPRESSION: 1. Findings suggestive of an enteritis. 2. Suggested right urinary bladder intraluminal polyp versus blood clot measuring up to 1.2 cm from t he right bladder dome. Recommend further evaluation with short-term follow-up CT urogram. [facility], , 09/30/2024 10:40 PM
[2024-09-30 23:24] VITALS: BP 105/65; PULSE 78; RESP 16; TEMP 98.4
== END 2024-09-30 23:24 | disposition home or self-care (01) ==
LOC: EC 19:14
DX: K52.9 Noninfective gastroenteritis and colitis, unspecified (principal); E86.0 Dehydration; F17.290 Nicotine dependence, other tobacco product, uncomplicated; Z88.8 Allergy status to other drugs, medicaments and biological substances
CPT/HCPCS: 36415; 80053; 83605; 85025; 81001; 84702; 87086; 74177; 99284; 96365; 96375; 96361; J2405; J0131; Q9967